=== PATIENT | female | born 1955 | race Two or more races ===

== ENCOUNTER 2016-07-05 11:56 | Inpatient (IN) | payer SELFPAY ==
[~2016-07-05] VITALS: Ht 144.8 cm; Wt 61.5 kg
[~2016-07-05 11:56] MED LIST: ACID1TAB PO; ALPR0.5T6 PO; AMLO10TA4 PO; ATOR40TA78 PO; CARV-39 PO; CLOP75TA PO; FURO-92 PO; GLIM1TAB2 PO; HYDR-3343 PO; ISOS30TA8 PO; POTA20TA6 PO
[2016-07-05] MEDS ORDERED: ACET-1600 PO (12:14)
[2016-07-05] MEDS ORDERED: ASPI-496 PO (12:14)
[2016-07-05] MEDS ORDERED: FERR325T10 PO (12:14)
[2016-07-05] MEDS ORDERED: GLIM1TAB2 PO (12:14)
[2016-07-05] MEDS ORDERED: DOCU100C24 PO (12:14)
[2016-07-05] MEDS ORDERED: AMLO10TA2 PO (12:14)
[2016-07-05 12:37] LABS: ABG COLLECTION SITE RIGHT BRACHIAL; COLLATERAL CIRCULATION TESTING NORMAL; O2 FLOW 7 L/min
[2016-07-05] MEDS ORDERED: SODIUM CHLORIDE FLUSH 10ML SYR IVF PRN (13:30)
[2016-07-05 13:34] LABS: HEMOGLOBIN 7.7 g/dL (11.7-16.4)
[2016-07-05 13:42] LABS: ASPARTATE AMINO TRANSFERASE 16 U/L (15-37); BLOOD UREA NITROGEN 48 mg/dL (7-18)
[2016-07-05] MEDS ORDERED: POLYETHYLENE GLYCOL 17 GM PACKET PO PRN (14:00)
[2016-07-05] MEDS ORDERED: ENOXAPARIN 40 MG/0.4 ML SQ SCH (14:00)
[2016-07-05] MEDS ORDERED: ONDANSETRON 2MG/ML, 2ML IVP PRN (14:00)
[2016-07-05] MEDS ORDERED: ONDANSETRON ODT 4 MG PO PRN (14:00)
[2016-07-05] MEDS ORDERED: LABETALOL 5MG/ML, 20ML IV PRN (14:00)
[2016-07-05] MEDS ORDERED: DOCUSATE 100 MG CAPSULE PO PRN (14:00)
[2016-07-05] MEDS ORDERED: GUAIFENESIN/DM 200-20MG, 10ML UDC PO PRN (14:00)
[2016-07-05 14:06] LABS: IS PT STATUS REG ER OR PRE ER? YES
[2016-07-05] MEDS ORDERED: PHARMACY MAY ADJ FOR RENAL FX MC PRN (14:30)
[2016-07-05] MEDS: INSULIN REGULAR 100 UNITS/ML, 3ML VIAL SQ-INSULIN SCH ×2 (16:00→20:55)
[2016-07-05 18:00] VITALS: BP 170/80
[2016-07-05 18:30] VITALS: BP 166/80
[2016-07-05 19:58] LABS: IS PT STATUS REG ER OR PRE ER? NO
[2016-07-05] MEDS: FUROSEMIDE 40 MG/4 ML IV SCH (21:04)
[2016-07-05] MEDS: ATORVASTATIN 40 MG TABLET PO SCH (21:04)
[2016-07-05] MEDS: LACTOBACILLUS CHEW TABLET PO SCH (21:04)
[2016-07-05] MEDS: CARVEDILOL 25 MG TABLET PO SCH (21:35)
[2016-07-06] VITALS (15 sets, daily range): BP systolic 119–157; BP diastolic 55–70
[2016-07-06 05:56] LABS: ASPARTATE AMINO TRANSFERASE 14 U/L (15-37); BLOOD UREA NITROGEN 45 mg/dL (7-18)
[2016-07-06 06:02] LABS: HEMOGLOBIN 7.3 g/dL (11.7-16.4)
[2016-07-06] MEDS: INSULIN REGULAR 100 UNITS/ML, 3ML VIAL SQ-INSULIN SCH ×4 (07:00→21:00)
[2016-07-06] MEDS ORDERED: ISOSORBIDE MONONITRATE ER 30 MG TABLET PO SCH (09:00)
[2016-07-06] MEDS: SENNA/DOCUSATE TABLET PO SCH (09:00)
[2016-07-06] MEDS: FUROSEMIDE 40 MG/4 ML IV SCH ×2 (10:07→21:36)
[2016-07-06] MEDS: FERROUS SULFATE 325 MG TABLET PO SCH (10:10)
[2016-07-06] MEDS: CARVEDILOL 25 MG TABLET PO SCH ×2 (10:10→21:35)
[2016-07-06] MEDS: LACTOBACILLUS CHEW TABLET PO SCH ×2 (10:10→21:36)
[2016-07-06] MEDS: AMLODIPINE 5 MG TABLET PO SCH (10:10)
[2016-07-06] MEDS: ASPIRIN 81 MG TABLET EC PO SCH (10:11)
[2016-07-06] MEDS: CLOPIDOGREL 75 MG TABLET PO SCH (10:11)
[2016-07-06] MEDS ORDERED: ACETAMINOPHEN 325 MG TABLET PO PRN (11:30)
[2016-07-06] MEDS: ATORVASTATIN 40 MG TABLET PO SCH (21:36)
[2016-07-07] VITALS (7 sets, daily range): BP systolic 130–161; BP diastolic 52–70
[2016-07-07 05:50] LABS: BLOOD UREA NITROGEN 44 mg/dL (7-18)
[2016-07-07] MEDS: INSULIN REGULAR 100 UNITS/ML, 3ML VIAL SQ-INSULIN SCH ×4 (07:00→21:00)
[2016-07-07] MEDS: SENNA/DOCUSATE TABLET PO SCH (09:00)
[2016-07-07] MEDS: FUROSEMIDE 40 MG/4 ML IV SCH (09:55)
[2016-07-07] MEDS: CARVEDILOL 25 MG TABLET PO SCH ×2 (09:56→21:47)
[2016-07-07] MEDS: ASPIRIN 81 MG TABLET EC PO SCH (09:56)
[2016-07-07] MEDS: LACTOBACILLUS CHEW TABLET PO SCH ×2 (09:56→21:47)
[2016-07-07] MEDS: CLOPIDOGREL 75 MG TABLET PO SCH (09:56)
[2016-07-07] MEDS: AMLODIPINE 5 MG TABLET PO SCH (09:56)
[2016-07-07] MEDS: FERROUS SULFATE 325 MG TABLET PO SCH (09:56)
[2016-07-07] MEDS: ISOSORBIDE MONONITRATE ER 60 MG TABLET PO SCH (09:57)
[2016-07-07 13:38] LABS: OCCBLD OBC PASS
[2016-07-07] MEDS: ATORVASTATIN 40 MG TABLET PO SCH (21:47)
[2016-07-08 01:32] VITALS: BP 161/66
[2016-07-08 04:57] LABS: BLOOD UREA NITROGEN 47 mg/dL (7-18)
[2016-07-08 06:48] VITALS: BP 148/63
[2016-07-08] MEDS: INSULIN REGULAR 100 UNITS/ML, 3ML VIAL SQ-INSULIN SCH ×4 (08:54→21:00)
[2016-07-08] MEDS: SENNA/DOCUSATE TABLET PO SCH (08:55)
[2016-07-08] MEDS: LACTOBACILLUS CHEW TABLET PO SCH ×2 (08:55→21:55)
[2016-07-08] MEDS: CLOPIDOGREL 75 MG TABLET PO SCH (08:55)
[2016-07-08] MEDS: ISOSORBIDE MONONITRATE ER 60 MG TABLET PO SCH (08:55)
[2016-07-08] MEDS: ASPIRIN 81 MG TABLET EC PO SCH (08:55)
[2016-07-08] MEDS: FERROUS SULFATE 325 MG TABLET PO SCH (08:55)
[2016-07-08] MEDS: AMLODIPINE 5 MG TABLET PO SCH (08:55)
[2016-07-08] MEDS: CARVEDILOL 25 MG TABLET PO SCH ×2 (08:56→21:54)
[2016-07-08] MEDS ORDERED: FUROSEMIDE 40 MG TABLET PO SCH (09:00)
[2016-07-08] MEDS: SODIUM CHLORIDE 0.9% 1,000 ML IV SCH ×2 (10:26→20:00)
[2016-07-08 12:33] VITALS: BP 120/52
[2016-07-08 19:27] VITALS: BP 131/56
[2016-07-08] MEDS: ATORVASTATIN 40 MG TABLET PO SCH (21:55)
[2016-07-09 01:26] VITALS: BP 134/66
[2016-07-09 05:58] LABS: HEMOGLOBIN 9.2 g/dL (11.7-16.4)
[2016-07-09 06:17] LABS: BLOOD UREA NITROGEN 43 mg/dL (7-18)
[2016-07-09] MEDS: INSULIN REGULAR 100 UNITS/ML, 3ML VIAL SQ-INSULIN SCH ×2 (07:00→13:17)
[2016-07-09 07:45] VITALS: BP 143/61
[2016-07-09] MEDS: FERROUS SULFATE 325 MG TABLET PO SCH (08:56)
[2016-07-09] MEDS: ASPIRIN 81 MG TABLET EC PO SCH (08:56)
[2016-07-09] MEDS: CARVEDILOL 25 MG TABLET PO SCH (08:56)
[2016-07-09] MEDS: AMLODIPINE 5 MG TABLET PO SCH (08:56)
[2016-07-09] MEDS: LACTOBACILLUS CHEW TABLET PO SCH (08:56)
[2016-07-09] MEDS: CLOPIDOGREL 75 MG TABLET PO SCH (08:56)
[2016-07-09] MEDS: ISOSORBIDE MONONITRATE ER 60 MG TABLET PO SCH (08:56)
[2016-07-09] MEDS: SENNA/DOCUSATE TABLET PO SCH (08:56)
[2016-07-09] MEDS ORDERED: FUROSEMIDE 40 MG TABLET PO SCH (09:00)
[2016-07-09 13:20] VITALS: BP 127/64
[2016-07-09] MEDS ORDERED: FURO40TA6 PO (16:31)
[2016-07-09] MEDS ORDERED: ISOS60TA36 PO (16:31)
[2016-07-09] MEDS ORDERED: TEMA15CA6 PO (16:31)
[2016-07-10] MEDS ORDERED: FUROSEMIDE 40 MG TABLET PO SCH (09:00)
== END 2016-07-09 18:03 | disposition home or self-care (01) | DRG 291 ==
LOC: ED 13:04 → EDIP 13:06 → ED 14:22 → 5SO 16:44
PROVIDERS: ADMIT Hospitalist; ATTEND Hospitalist
PROC: 30233N1 Transfusion of Nonautologous Red Blood Cells into Peripheral Vein, Percutaneous Approach (ICD-10-PCS; principal; 2016-07-06)
DX: I13.0 Hypertensive heart and chronic kidney disease with heart failure and stage 1 through stage 4 chronic kidney disease, or unspecified chronic kidney disease (principal); E43 Unspecified severe protein-calorie malnutrition; J96.21 Acute and chronic respiratory failure with hypoxia; I50.33 Acute on chronic diastolic (congestive) heart failure; E87.0 Hyperosmolality and hypernatremia; N18.4 Chronic kidney disease, stage 4 (severe); I34.0 Nonrheumatic mitral (valve) insufficiency; E11.22 Type 2 diabetes mellitus with diabetic chronic kidney disease; I25.10 Atherosclerotic heart disease of native coronary artery without angina pectoris; E78.5 Hyperlipidemia, unspecified; D63.8 Anemia in other chronic diseases classified elsewhere; I27.2 Other secondary pulmonary hypertension; I25.2 Old myocardial infarction; Z95.5 Presence of coronary angioplasty implant and graft; Z99.81 Dependence on supplemental oxygen; Z79.82 Long term (current) use of aspirin; Z79.84 Long term (current) use of oral hypoglycemic drugs; Z79.899 Other long term (current) drug therapy; Z68.29 Body mass index [BMI] 29.0-29.9, adult
CPT/HCPCS: 36415; 36600; 71010; 71020; 80048; 80053; 80061; 82272; 82803; 82962; 83036; 83735; 84100; 84439; 84443; 84484; 85014; 85018; 85025; 85610; 86850; 86860; 86880; 86900; 86923; 87324; 93005; 93306; 99285; J1815; J1940; J7030; P9016

== ENCOUNTER 2017-07-10 15:37 | Emergency (ER) | payer MEDICAID ==
[~2017-07-10] VITALS: Ht 144.8 cm; Wt 56.7 kg
[~2017-07-10 15:37] MED LIST changes: +ACET-1600 PO; +AMLO10TA2 PO; +ASPI-496 PO; +DOCU100C24 PO; +ERGO500017 PO; +FERR-51 PO; +FURO40TA6 PO; +INSU100I18 SQ-INSULIN; +ISON300T4 PO; +ISOS60TA36 PO; +METR500T PO; +TEMA15CA6 PO; +TORS20TA2 PO
[2017-07-10 19:08] VITALS: BP 160/66
== END 2017-07-10 19:12 | disposition home or self-care (01) ==
LOC: ED 19:06
DX: I10 Essential (primary) hypertension (principal); M79.89 Other specified soft tissue disorders; E78.00 Pure hypercholesterolemia, unspecified; I25.10 Atherosclerotic heart disease of native coronary artery without angina pectoris; I25.2 Old myocardial infarction; E11.9 Type 2 diabetes mellitus without complications; Z99.2 Dependence on renal dialysis
CPT/HCPCS: 99283